=== PATIENT | male | born 1945 | race African-American/Black ===

== ENCOUNTER 2022-10-08 05:55 | Inpatient (IN) ==
[2022-09-29 11:42] LABS: Basophils # 0.1 10*3/uL (0.0-0.2); Basophils % 0.9 % (0.0-0.8); Eosinophils # 0.2 10*3/uL (0.0-0.87); Eosinophils % 2.8 % (0.00-10.9); Hematocrit 44.4 VOL% (42.0-52.0); Immature Granulocytes % 0.3 %; Immature Granulocytes Absolute 0.02 #; Lymphocytes # 2.5 10*3/uL (1.4-4.0); Lymphocytes % 34.4 % (21.2-54.2); Mean Corpuscular HGB Conc 33.8 GM/DL (32-36); Mean Corpuscular Volume 91.4 FL (87-102); Mean Platelet Volume 11.7 FL (9.6-12.0); Monocytes # 0.5 10*3/uL (0.11-0.8); Monocytes % 6.2 % (1.7-12.7); Neutrophils % 55.4 % (38.7-73.9); Platelet Count 171 T/CUMM (130-400); Red Blood Count 4.86 MC/CUMM (3.8-5.5); Red Cell Distribution Width 12.5 % (9.3-17.3); White Blood Count 7.4 T/CUMM (4-12)
[2022-09-29 11:44] LABS: Albumin 4.4 G/DL (3.4-5.0); Bilirubin,Total 0.4 MG/DL (0.20-1.00); Calcium 9.5 MG/DL (8.5-10.1); Osmolality,Calculated 277.5 MOS/KG (273-304); Potassium 4.6 MMOL/L (3.5-5.1); Total Protein 7.5 G/DL (6.4-8.2)
[2022-10-08] MEDS ORDERED: CLINDAMYCIN INJ 900 MG/50 ML PREMIX IV ONE (06:00)
[2022-10-08] MEDS ORDERED: MIDAZOLAM 2 MG/2 ML VIAL ONE (06:14)
[2022-10-08] MEDS ORDERED: fentaNYL 100 MCG/2 ML VIAL ONE ×2 (06:14→11:16)
[2022-10-08] MEDS ORDERED: LIDOCAINE 2% 5 ML VIAL ONE (06:17)
[2022-10-08] MEDS ORDERED: propofoL 200 MG/20 ML VIAL IV ONE (06:17)
[2022-10-08] MEDS ORDERED: ONDANSETRON 4 MG/2 ML VIAL ONE (06:17)
[2022-10-08] MEDS ORDERED: SUCCINYLCHOLINE 200 MG/10 ML VIAL ONE (06:17)
[2022-10-08] MEDS ORDERED: ROCURONIUM 50 MG/5 ML VIAL IV ONE ×2 (06:17→10:40)
[2022-10-08] MEDS: LACTATED RINGERS 1,000 ML IV SCH (06:30)
[2022-10-08] MEDS ORDERED: DEXAMETHASONE 4 MG/1 ML VIAL ONE (06:30)
[2022-10-08] MEDS ORDERED: LIDOCAINE 1% 5 ML VIAL ONE (06:30)
[2022-10-08] MEDS ORDERED: ROPIVACAINE 0.5% 30 ML VIAL ONE (06:30)
[2022-10-08] MEDS ORDERED: TISSUE ADHESIVE 1 EACH APPLICATOR TOP ONE (06:38)
[2022-10-08] MEDS ORDERED: ACETAMINOPHEN INJ 1,000 MG/100 ML VIAL IV ONE (07:24)
[2022-10-08] MEDS ORDERED: ePHEDrine 50 MG/ML VIAL ONE (07:25)
[2022-10-08] MEDS ORDERED: LACTATED RINGERS 1,000 ML IV ONE (08:34)
[2022-10-08] MEDS ORDERED: INDOCYANINE GREEN 25 MG VIAL IV ONE (10:06)
[2022-10-08] MEDS ORDERED: PHENYLEPHRINE 10 MG/1 ML VIAL IV ONE (10:44)
[2022-10-08] MEDS ORDERED: SUGAMMADEX 200 MG/2 ML VIAL IV ONE (11:32)
[2022-10-08] MEDS ORDERED: ONDANSETRON 4 MG/2 ML VIAL IV PRN ×2 (11:54→12:04)
[2022-10-08] MEDS ORDERED: ACETAMINOPHEN 325 MG TABLET PO PRN (11:54)
[2022-10-08] MEDS ORDERED: HYDROmorphone 1 MG/1 ML SYRINGE IV PRN (11:54)
[2022-10-08 12:04] LABS: Bilirubin,Urine Negative (Negative); Blood, Urine Trace mg/dL (Negative); Glucose,Urine (UA) Negative (Negative); Ketones,Urine Negative (Negative); Nitrite,Urine Negative (Negative); Protein,Urine Negative (Negative); Urine Appearance Clear (Clear); Urine Color Yellow (Yellow); Urine Specific Gravity 1.025 (1.001-1.035); Urine Urobilinogen 0.2 eU/dL (<2.0); Urine pH 5.5 (4.5-8.0)
[2022-10-08] MEDS ORDERED: diphenhydrAMINE 50 MG/1 ML VIAL IV PRN (12:04)
[2022-10-08] MEDS ORDERED: MEPERIDINE 25 MG/1 ML VIAL IV PRN (12:04)
[2022-10-08] MEDS ORDERED: PROMETHAZINE INJ 25 MG in SODIUM CHLORIDE 0.9% 50 ML IV PRN (12:04)
[2022-10-08 12:05] LABS: Bacteria,Urine Occasional /HPF (Few); Mucus,Urine Occasional /LPF (Occasional); RBC,Urine 2 /HPF (0-4); Squamous Epithelial Cell,Urine Occasional /HPF (0-10)
[2022-10-08] MEDS ORDERED: SODIUM CHLORIDE 0.9% 100 ML IV ONE (12:36)
[2022-10-08] MEDS: HYDROmorphone 1 MG/1 ML SYRINGE IV PRN ×2 (13:00→13:05)
[2022-10-08] MEDS: PIPERACILLIN/TAZOBACTAM 3,375 MG in SODIUM CHLORIDE 0.9% 100 ML IV SCH ×2 (13:15→22:45)
[2022-10-08] MEDS: DEXTROSE 5% LACTATED RINGERS 1,000 ML IV SCH ×2 (13:49→22:44)
[2022-10-08] MEDS ORDERED: hydrALAZINE 20 MG/1 ML VIAL ONE (14:03)
[2022-10-08] MEDS: hydrALAZINE 20 MG/1 ML VIAL IV PRN (14:05)
[2022-10-08] MEDS: METOPROLOL TARTRATE 5 MG/5 ML VIAL IV SCH (22:46)
[2022-10-09] MEDS: PIPERACILLIN/TAZOBACTAM 3,375 MG in SODIUM CHLORIDE 0.9% 100 ML IV SCH ×3 (04:45→20:44)
[2022-10-09] MEDS: METOPROLOL TARTRATE 5 MG/5 ML VIAL IV SCH ×4 (04:45→20:44)
[2022-10-09] MEDS: DEXTROSE 5% LACTATED RINGERS 1,000 ML IV SCH ×3 (04:56→20:50)
[2022-10-09 05:21] LABS: Basophils % 0.2 % (0.0-0.8); Eosinophils % 0.1 % (0.00-10.9); Hematocrit 42.5 VOL% (42.0-52.0); Hemoglobin 14.1 GM/DL (14.0-18.0); Immature Granulocytes % 0.3 %; Immature Granulocytes Absolute 0.04 #; Lymphocytes # 1.4 10*3/uL (1.4-4.0); Lymphocytes % 10.5 % (21.2-54.2); Mean Corpuscular HGB Conc 33.2 GM/DL (32-36); Mean Platelet Volume 10.8 FL (9.6-12.0); Monocytes # 0.9 10*3/uL (0.11-0.8); Monocytes % 6.5 % (1.7-12.7); Neutrophils % 82.4 % (38.7-73.9); Platelet Count 158 T/CUMM (130-400); Red Blood Count 4.57 MC/CUMM (3.8-5.5); Red Cell Distribution Width 12.7 % (9.3-17.3); White Blood Count 13.3 T/CUMM (4-12)
[2022-10-09 05:42] LABS: Calcium 8.7 MG/DL (8.5-10.1); Osmolality,Calculated 282.3 MOS/KG (273-304); Potassium 4.5 MMOL/L (3.5-5.1)
[2022-10-09] MEDS: PANTOPRAZOLE 40 MG VIAL IV SCH (10:22)
[2022-10-09] MEDS: hydroCHLOROthiazide 25 MG TABLET PO SCH (10:23)
[2022-10-10] MEDS: METOPROLOL TARTRATE 5 MG/5 ML VIAL IV SCH ×4 (04:36→20:43)
[2022-10-10] MEDS: PIPERACILLIN/TAZOBACTAM 3,375 MG in SODIUM CHLORIDE 0.9% 100 ML IV SCH (04:37)
[2022-10-10] MEDS: LACTATED RINGERS 1,000 ML IV SCH (07:04)
[2022-10-10] MEDS: hydroCHLOROthiazide 25 MG TABLET PO SCH ×2 (09:16→09:22)
[2022-10-10] MEDS: PANTOPRAZOLE 40 MG VIAL IV SCH (09:16)
[2022-10-10] MEDS: ENOXAPARIN 40 MG/0.4 ML SYRINGE SUBCUT SCH (09:24)
[2022-10-10] MEDS: DEXTROSE 5% LACTATED RINGERS 1,000 ML IV SCH ×3 (12:49→20:44)
[2022-10-11] MEDS: METOPROLOL TARTRATE 5 MG/5 ML VIAL IV SCH ×4 (04:52→20:05)
[2022-10-11] MEDS: DEXTROSE 5% LACTATED RINGERS 1,000 ML IV SCH ×3 (04:53→20:05)
[2022-10-11 05:49] LABS: Basophils # 0.1 10*3/uL (0.0-0.2); Basophils % 0.4 % (0.0-0.8); Eosinophils # 0.3 10*3/uL (0.0-0.87); Eosinophils % 2.6 % (0.00-10.9); Hematocrit 39.4 VOL% (42.0-52.0); Hemoglobin 13.1 GM/DL (14.0-18.0); Immature Granulocytes % 0.4 %; Immature Granulocytes Absolute 0.04 #; Lymphocytes # 1.7 10*3/uL (1.4-4.0); Lymphocytes % 14.6 % (21.2-54.2); Mean Corpuscular HGB Conc 33.2 GM/DL (32-36); Mean Corpuscular Volume 93.8 FL (87-102); Mean Platelet Volume 11.1 FL (9.6-12.0); Monocytes # 0.8 10*3/uL (0.11-0.8); Monocytes % 6.8 % (1.7-12.7); Neutrophils % 75.2 % (38.7-73.9); Platelet Count 132 T/CUMM (130-400); Red Cell Distribution Width 12.4 % (9.3-17.3); White Blood Count 11.3 T/CUMM (4-12)
[2022-10-11 05:59] LABS: Calcium 8.7 MG/DL (8.5-10.1); Osmolality,Calculated 283.3 MOS/KG (273-304); Potassium 3.7 MMOL/L (3.5-5.1)
[2022-10-11] MEDS: ENOXAPARIN 40 MG/0.4 ML SYRINGE SUBCUT SCH (08:16)
[2022-10-11] MEDS: hydroCHLOROthiazide 25 MG TABLET PO SCH (08:52)
[2022-10-11] MEDS: PANTOPRAZOLE 40 MG VIAL IV SCH (08:57)
[2022-10-11] MEDS: hydrALAZINE 20 MG/1 ML VIAL IV PRN (17:41)
[2022-10-12] MEDS: DEXTROSE 5% LACTATED RINGERS 1,000 ML IV SCH ×3 (03:46→19:28)
[2022-10-12] MEDS: METOPROLOL TARTRATE 5 MG/5 ML VIAL IV SCH ×4 (04:14→20:40)
[2022-10-12 06:43] LABS: Basophils % 0.3 % (0.0-0.8); Eosinophils # 0.2 10*3/uL (0.0-0.87); Eosinophils % 2.1 % (0.00-10.9); Hematocrit 38.8 VOL% (42.0-52.0); Hemoglobin 12.9 GM/DL (14.0-18.0); Immature Granulocytes % 0.3 %; Immature Granulocytes Absolute 0.03 #; Lymphocytes # 1.5 10*3/uL (1.4-4.0); Lymphocytes % 14.3 % (21.2-54.2); Mean Corpuscular HGB Conc 33.2 GM/DL (32-36); Mean Corpuscular Volume 92.4 FL (87-102); Mean Platelet Volume 11.5 FL (9.6-12.0); Monocytes # 0.8 10*3/uL (0.11-0.8); Platelet Count 135 T/CUMM (130-400); Red Cell Distribution Width 12.2 % (9.3-17.3); White Blood Count 10.4 T/CUMM (4-12)
[2022-10-12 07:12] LABS: Calcium 8.9 MG/DL (8.5-10.1); Potassium 3.8 MMOL/L (3.5-5.1)
[2022-10-12] MEDS: ENOXAPARIN 40 MG/0.4 ML SYRINGE SUBCUT SCH (09:39)
[2022-10-12] MEDS: PANTOPRAZOLE 40 MG VIAL IV SCH (10:20)
[2022-10-12] MEDS: hydroCHLOROthiazide 25 MG TABLET PO SCH (10:24)
[2022-10-13] MEDS: METOPROLOL TARTRATE 5 MG/5 ML VIAL IV SCH ×2 (02:44→09:22)
[2022-10-13] MEDS: DEXTROSE 5% LACTATED RINGERS 1,000 ML IV SCH (05:48)
[2022-10-13] MEDS: PANTOPRAZOLE 40 MG VIAL IV SCH (09:22)
[2022-10-13] MEDS: hydroCHLOROthiazide 25 MG TABLET PO SCH (09:23)
[2022-10-13] MEDS: ENOXAPARIN 40 MG/0.4 ML SYRINGE SUBCUT SCH (09:23)
[2022-10-13 11:38] VITALS: BP 136/59
== END 2022-10-13 14:30 | disposition home or self-care (01) | DRG 328 ==
LOC: N.SDSINP 05:55 → N.OR 05:55 → N.SDSINP 11:53 → N.5E 15:17
PROVIDERS: ADMIT Student in an Organized Health Care Education/Training Program; ATTEND Student in an Organized Health Care Education/Training Program